=== PATIENT | female | born 1965 | race Two or more races ===

== ENCOUNTER 2016-08-08 19:17 | Emergency (ER) | payer MEDICAID ==
[~2016-08-08] VITALS: Ht 160 cm; Wt 50.0 kg
[2016-08-08] MEDS ORDERED: TETRACAINE 0.5% OPHTH DROPS 2ML BOTHEYE ONE (21:15)
[2016-08-08] MEDS ORDERED: IBUPROFEN 600MG TABLET PO ONE (21:15)
[2016-08-08] MEDS ORDERED: ONDANSETRON 4MG ODT PO ONE (21:15)
[2016-08-09 00:15] VITALS: BP 136/80
== END 2016-08-09 00:25 | disposition home or self-care (01) ==
LOC: ER 19:17
DX: F41.9 Anxiety disorder, unspecified (principal); H10.33 Unspecified acute conjunctivitis, bilateral; Y09 Assault by unspecified means; Y99.9 Unspecified external cause status; Y92.89 Other specified places as the place of occurrence of the external cause
CPT/HCPCS: 71020; 81025; 93005; 99284; J7040; Q0162

== ENCOUNTER 2023-02-04 16:31 | Emergency (ER) | payer MEDICAID, OTHER ==
[~2023-02-04] VITALS: Ht 167.6 cm; Wt 74.0 kg
[2023-02-04 16:44] VITALS: BP 156/92; PULSE 114; RESP 20; TEMP 98.9; O2SAT 97
== END 2023-02-04 19:31 | disposition home or self-care (01) ==
LOC: ER 16:31
DX: U07.1 COVID-19 (principal)
CPT/HCPCS: 99281

== ENCOUNTER 2023-10-25 17:49 | Emergency (ER) | payer OTHER ==
[~2023-10-25] VITALS: Ht 157.5 cm; Wt 66.0 kg
[2023-10-25 18:03] VITALS: O2SAT 98
[2023-10-25] MEDS: KETOROLAC 30MG/ML VIAL IM ONE (20:19)
[2023-10-25 20:21] LABS: BASOPHILS % 0.3 % (0.0-2.0); EOSINOPHILS % 1.3 % (0.0-5.0); HEMATOCRIT. 44.5 % (36.0-48.0); LYMPHOCYTES % 29.2 % (20.0-50.0); MEAN CORPUSCULAR HGB CONC 33.8 g/dL (31.0-37.0); MEAN CORPUSCULAR VOLUME 88.8 fL (81.0-99.0); MEAN PLATELET VOLUME 7.2 fl (7.4-10.4); NEUTROPHILS % 64.2 % (40.0-76.0); PLATELET 346 x1000/uL (130-400); RED BLOOD CELL COUNT 5.01 mill/uL (4.2-5.4); RED CELL DISTRIBUTION WIDTH 13.6 % (11.6-14.6); WHITE BLOOD COUNT 8.8 x1000/uL (4.5-11.0)
[2023-10-25 20:22] LABS: CHLORIDE 104 mEq/L (98-107); POTASSIUM 4.7 mEq/L (3.5-5.1); SODIUM 139 mEq/L (136-145)
[2023-10-25 20:23] LABS: CALCIUM 9.6 mg/dL (8.7-10.4); CARBON DIOXIDE 30 mEq/L (21-32)
[2023-10-25 20:28] LABS: CREATININE 0.7 mg/dL (0.6-1.0); GLUCOSE 92 mg/dL (70-105); UREA NITROGEN BLOOD 9 mg/dL (9-23)
[2023-10-25 20:30] LABS: ALANINE AMINOTRANSFERASE 35 IU/L (10-49); ALBUMIN 4.9 g/dL (3.2-4.8); ASPARTATE AMINOTRANSFERASE 29 IU/L (<34); BILIRUBIN TOTAL 0.8 mg/dL (0.1-1.0); PROTEIN TOTAL 8.4 g/dL (6.0-8.3)
[2023-10-25 21:01] LABS: CLARITY URINE CLEAR (CLEAR); COLOR URINE YELLOW (YELLOW); GLUCOSE URINE NEGATIVE (NEGATIVE); KETONES URINE NEGATIVE (NEGATIVE); LEUKOCYTE ESTERASE URINE 2+ (NEGATIVE); NITRITE URINE NEGATIVE (NEGATIVE); OCCULT BLOOD URINE NEGATIVE (NEGATIVE); PROTEIN URINE NEGATIVE (NEGATIVE); SPECIFIC GRAVITY URINE 1.006 (1.005-1.030); UROBILINOGEN URINE 0.2 E.U./dL (0.2-1.0)
[2023-10-25 21:21] LABS: BACTERIA URINE 2+
[2023-10-25 21:22] LABS: RBC URINE 0-2 /hpf (0-2); SQUAMOUS EPITHELIAL CELL URINE 1+ /lpf (RARE/1+)
[2023-10-25] MEDS ORDERED: IBUP-2029 MT (22:09)
[2023-10-25] MEDS ORDERED: NITR-87 MT (22:09)
[2023-10-25 22:20] VITALS: BP 138/94; PULSE 81; RESP 18; TEMP 98.7
== END 2023-10-25 22:28 | disposition home or self-care (01) ==
LOC: ER 17:49
DX: M54.50 Low back pain, unspecified (principal); N39.0 Urinary tract infection, site not specified; E78.00 Pure hypercholesterolemia, unspecified; I10 Essential (primary) hypertension
CPT/HCPCS: 80053; 81003; 85025; 36415; 96372; 99283; J1885; Z7610

== ENCOUNTER 2023-11-26 01:29 | Emergency (ER) | payer OTHER ==
[~2023-11-26] VITALS: Ht 162.6 cm; Wt 61.0 kg
[~2023-11-26 01:29] MED LIST: IBUP-2029 MT; NITR-87 MT
[2023-11-26 01:39] VITALS: O2SAT 98
[2023-11-26 04:31] LABS: BASOPHILS % 0.5 % (0.0-2.0); EOSINOPHILS % 1.4 % (0.0-5.0); HEMATOCRIT. 42.3 % (36.0-48.0); HEMOGLOBIN. 14.2 g/dL (12.0-16.0); LYMPHOCYTES % 39.9 % (20.0-50.0); MEAN CORPUSCULAR HEMOGLOBIN 29.6 pg (28.0-32.0); MEAN CORPUSCULAR HGB CONC 33.4 g/dL (31.0-37.0); MEAN CORPUSCULAR VOLUME 88.4 fL (81.0-99.0); MEAN PLATELET VOLUME 7.9 fl (7.4-10.4); MONOCYTES % 6.7 % (2.0-8.0); NEUTROPHILS % 51.5 % (40.0-76.0); PLATELET 338 x1000/uL (130-400); RED BLOOD CELL COUNT 4.79 mill/uL (4.2-5.4); RED CELL DISTRIBUTION WIDTH 13.6 % (11.6-14.6); WHITE BLOOD COUNT 6.6 x1000/uL (4.5-11.0)
[2023-11-26 04:32] LABS: CHLORIDE 108 mEq/L (98-107); POTASSIUM 3.4 mEq/L (3.5-5.1); SODIUM 139 mEq/L (136-145)
[2023-11-26 04:33] LABS: CALCIUM 9.1 mg/dL (8.7-10.4); CARBON DIOXIDE 25 mEq/L (21-32)
[2023-11-26 04:38] LABS: CREATININE 0.7 mg/dL (0.6-1.0); GLUCOSE 100 mg/dL (70-105); UREA NITROGEN BLOOD 13 mg/dL (9-23)
[2023-11-26] MEDS: HYDROCODONE/ACETAMINOPHEN 5/325MG TABLET PO STA (04:52)
[2023-11-26 05:06] LABS: TROPONIN I HIGH SENSITIVITY < 4 ng/L (3.0-34)
[2023-11-26] MEDS ORDERED: NAP5EC MT (05:39)
[2023-11-26 06:10] VITALS: BP 115/81; PULSE 68; RESP 11; TEMP 98
== END 2023-11-26 06:11 | disposition home or self-care (01) ==
LOC: ER 01:29
DX: M94.0 Chondrocostal junction syndrome [Tietze] (principal); I10 Essential (primary) hypertension; E78.00 Pure hypercholesterolemia, unspecified
CPT/HCPCS: 36415; 71045; 80048; 84484; 85025; 85379; 99284

== ENCOUNTER 2024-03-17 10:03 | Emergency (ER) | payer MEDICAID, OTHER ==
[~2024-03-17] VITALS: Ht 160 cm; Wt 70.0 kg
[~2024-03-17 10:03] MED LIST changes: +NAP5EC MT
[2024-03-17 10:17] VITALS: TEMP 98.1; O2SAT 98
[2024-03-17] MEDS ORDERED: AMLO5TAB4 MT (10:41)
[2024-03-17 10:48] VITALS: BP 159/106; PULSE 75; RESP 16; O2SAT 99
== END 2024-03-17 10:52 | disposition home or self-care (01) ==
LOC: ER 10:20
DX: I16.0 Hypertensive urgency (principal); E78.00 Pure hypercholesterolemia, unspecified
CPT/HCPCS: 99283; Z7610